=== PATIENT | male | born 1955 | race Caucasian/White ===

== ENCOUNTER 2018-03-23 08:09 | Day surgery (SDC) | payer BC ==
[2018-03-22 11:01] VITALS: BMI 26.6
--- NOTE | 2018-03-23 07:41 | HP ---
SHORT STAY HISTORY AND PHYSICAL DATE OF ADMISSION: 03/23/2018 HISTORY OF PRESENT ILLNESS: This is a 62-year-old male with a history of colon polyp with polypectomy in the past. The last exam was done 5 years ago. He also has family history of colon ca ncer. The patient has history of acid reflux for many years. His symptom was controlled with antaci ds. Bowel movements are regular. He has been having abdominal pain off and on. The pain is over th e left lower quadrant area and also left upper quadrant. nausea and the pain worse after meals . He has no urinary symptoms. The patient comes in for a colonoscopy because of the colon polyp and also EGD because of abdominal pain and also chronic acid reflux. ALLERGIES: None. SOCIAL HISTORY: The patient is a former smoker. Does not drink alcohol. MEDICAL ILLNESSES: 1. Hyperlipidemia. 2. Chronic acid reflux. 3. Colon polyp. 4. Bilateral shoulder surgery. 5. Bilateral carpal tunnel syndrome release. 6. Back surgery x2. 7. Cervical spine surgery. 8. Right hand surgery. PHYSICAL EXAMINATION: VITAL SIGNS: Pulse is 70, blood pressure 130/80. HEENT: Conjunctivae clear. CARDIOVASCULAR SYSTEM: First and second heart sounds normal. LUNGS: Clear to auscultation. ABDOMEN: Soft to palpate. No organomegaly. Abdomen is tender over the left upper quadrant. No sanjana ound or guarding. ADMITTING DIAGNOSES: 1. Colon polyp. 2. Abdominal pain, chronic acid reflux. PLAN: EGD and colonoscopy.
--- NOTE | 2018-03-23 10:45 | OP ---
DATE OF PROCEDURE: 03/23/2018 OPERATIVE PROCEDURE: Colonoscopy. PREOPERATIVE DIAGNOSIS: The patient is a 62-year-old male with history of colon polyp and family history of colon cancer. The patient underwent colonoscopy. POSTOPERATIVE DIAGNOSIS: Normal colonoscopy. PROCEDURE IN DETAIL: The patient was placed on his left lateral position and was given sedation by A nesthesia Department. A rectal exam was done before the scope was advanced into the rectum. No lesi on felt on rectal exam. A Pentax video colonoscope was introduced into the rectum and advanced all t he way into the cecum. The patient did have some retained stool over the right colon, which was coat ing the mucosa. Water was irrigated and washed out. The mucosa appears normal throughout the colon. The appendiceal orifice, ileocecal valve, cecum, no pathology seen. The ascending colon, hepatic f lexure, no pathology seen. The transverse colon, splenic flexure, descending colon, and sigmoid colo n, no pathology seen. Retroflexion of the scope in the rectum showed no pathology.
[2018-03-23] MEDS ORDERED: Lidocaine 1% PF 5 ML VIAL ONE (13:43)
[2018-03-23] MEDS ORDERED: PROPOFOL 200 MG/20 ML VIAL ONE (13:43)
--- NOTE | 2018-03-23 23:12 | OP ---
DATE OF PROCEDURE: 03/23/2018 OPERATIVE PROCEDURE: Esophagogastroduodenoscopy with biopsy. PREOPERATIVE DIAGNOSIS: A 62-year-old male with abdominal pain, history of chronic acid re flux. He is undergoing esophagogastroduodenoscopy. POSTOPERATIVE DIAGNOSES: 1. Ulcerative esophagitis, Calypso grade 4. 2. Large hiatal hernia. 3. Duodenitis. PROCEDURE NOTE: The patient was placed on his left lateral position and was given sedation by Anesth esia Department. A Pentax video gastroscope under direct vision was passed down the oropharynx, past the GE junction into stomach and subsequently into the descending duodenum. The esophageal mucosa a ppears normal over the upper two-thirds. Over the distal esophagus, the patient found to have circum ferential ulcerations and esophagitis. The patient has a large hiatus hernia. Retroflexion failed t o show pathology in the fundus or cardia. The gastric body, gastric antrum, incisura angularis, no p athology seen. The duodenal bulb shows mucosal edema, erythema. The descending duodenum, no patholo gy seen. Biopsy obtained from the gastric antrum and gastric body. Also, biopsy obtained from the d istal esophagus. The stomach was decompressed and the scope removed. DISCHARGE PLANNING: This is a 62-year-old male with history of colon polyp and family hist ory of colon cancer. The patient has noted chronic acid reflux over the years and has been having ab dominal pain over the left upper quadrant. He underwent a colonoscopy, which was negative. The EGD showed severe ulcerative esophagitis, Calypso grade 4. He also had a hiatus hernia. DISCHARGE RECOMMENDATIONS: 1. Start the patient on omeprazole 40 once a day. 2. The patient was advised to call me if he develops abdominal pain or hematochezia. 3. Repeat colonoscopy in 3 years because of family history of colon cancer.
== END 2018-03-23 11:05 | disposition home or self-care (01) ==
LOC: SDC 08:09
PROVIDERS: ATTEND Internal Medicine Gastroenterology
PROC: 0DB68ZX Excision of Stomach, Via Natural or Artificial Opening Endoscopic, Diagnostic (ICD-10-PCS; principal; 2018-03-23)
PROC: 0DJD8ZZ Inspection of Lower Intestinal Tract, Via Natural or Artificial Opening Endoscopic (ICD-10-PCS; principal; 2018-03-23)
PROC: 0DB38ZX Excision of Lower Esophagus, Via Natural or Artificial Opening Endoscopic, Diagnostic (ICD-10-PCS; principal; 2018-03-23)
DX: Z12.11 Encounter for screening for malignant neoplasm of colon (principal); K29.50 Unspecified chronic gastritis without bleeding; K21.0 Gastro-esophageal reflux disease with esophagitis; K22.10 Ulcer of esophagus without bleeding; K29.80 Duodenitis without bleeding; K44.9 Diaphragmatic hernia without obstruction or gangrene; E78.5 Hyperlipidemia, unspecified; Z86.010 Personal history of colon polyps; Z80.0 Family history of malignant neoplasm of digestive organs; Z88.1 Allergy status to other antibiotic agents; Z88.6 Allergy status to analgesic agent
CPT/HCPCS: 88305; 88312; 88313; J2001; J2704

== ENCOUNTER 2018-08-11 16:56 | Outpatient (CLI) | payer BC ==
--- NOTE | 2018-08-11 18:23 | RAD ---
RIGHT HAND RADIOGRAPHS THREE VIEWS: 08/11/18 PROVIDED CLINICAL HISTORY: Postop. FINDINGS: No comparisons. There is deformity of the second metacarpal head with an irregular and collapsed appearance to the ar ticular surface. Material of increased density is seen in the expected second MCP joint space that ma y reflect bone graft. There is a suture anchor seen at the radial aspects of the second metacarpal ne ck. There is an otherwise unremarkable appearance to the regional osseous structures with exception o f first MCP arthrodesis/ankylosis changes. Joint spaces appear otherwise preserved. Alignment appears otherwise anatomic. IMPRESSION: Abnormal appearance to the second metacarpal head with associated postsurgical change. Correlation wi th prior examinations is necessary to complete evaluation. POS: PÉREZ
--- NOTE | 2018-08-11 18:27 | RAD ---
RIGHT ANKLE RADIOGRAPHS THREE VIEWS: 08/11/18 PROVIDED CLINICAL HISTORY: Right ankle pain. FINDINGS: There is no evidence for fracture or other acute osseous abnormality. Posterior and plantar calcaneal enthesophyte formation is seen. Alignment appears anatomic. Joint spaces appear preserved. Hypertrop hic changes are seen involving the medial caliculus and distal fibula that may predispose to impingem ent. IMPRESSION: No evidence for an acute osseous abnormality or significant arthropathy. POS: PÉREZ
== END 2018-08-11 16:57 | disposition home or self-care (01) ==
LOC: SCSRAD 16:56
PROVIDERS: ATTEND Family Medicine
DX: M79.641 Pain in right hand (principal); M25.571 Pain in right ankle and joints of right foot; R93.6 Abnormal findings on diagnostic imaging of limbs; Z98.890 Other specified postprocedural states

== ENCOUNTER 2019-10-17 06:48 | Outpatient (CLI) | payer BC ==
[2019-10-17 10:56] LABS: Anion Gap 11 mmol/L (10-20); BUN (Urea Nitrogen) 21 mg/dL (8.4-25.7); Calc. Creatinine Clearance 0 mL/min (70-130); Calcium 9.1 mg/dL (7.8-10.44); Carbon Dioxide 28 mmol/L (23-31); Chloride 103 mmol/L (98-107); Estimated GFR-MDRD 62; Glucose 79 mg/dL (80-115); Potassium 4.5 mmol/L (3.5-5.1); Sodium 137 mmol/L (136-145)
[2019-10-17 12:48] LABS: Band 5 % (5-11); Eosinophils 2 % (0-10); Hemoglobin 15.4 g/dL (14.0-18.0); Lymphocytes 25 % (21-51); MDiff Complete? YES; Mean Corpuscular HGB CONC 32.3 g/dL (32.0-36.0); Mean Corpuscular Hemoglobin 30.8 pg (27.0-31.0); Mean Corpuscular Volume 95.3 fL (78.0-98.0); Mean Platelet Volume 8.5 fL (7.4-10.4); Metamyelocyte 1 % (0-0); Monocytes 7 % (0-10); Neutrophil 35 % (42-75); Platelet Count 207 thou/uL (130-400); RBC Distribution Width 11.6 % (11.5-14.5); RBC Morphology Normal; Reactive Lymphocytes 25 % (0-10); Red Blood Cell (RBC) Count 5.01 mill/uL (4.70-6.10); White Blood Cell (WBC) Count 4.1 thou/uL (4.8-10.8)
--- NOTE | 2019-10-17 16:29 | EKG ---
Test Reason : Blood Pressure : / mmHG Vent. Rate : 059 BPM Atrial Rate : 059 BPM P-R Int : 180 ms QRS Dur : 074 ms QT Int : 402 ms P-R-T Axes : 049 -40 045 degrees QTc Int : 397 ms Sinus bradycardia Left axis deviation Low voltage QRS Abnormal ECG When compared with ECG of 07-NOV-2008 12:04, No significant change was found Confirmed by DR. Lay ALEXANDER ([id number]) on 10/17/2019 4:29:14 PM Referred By: Rylan NANCE Confirmed By:DR. Lay ALEXANDER
== END 2019-10-17 06:49 | disposition home or self-care (01) ==
LOC: LABBT 06:48
PROVIDERS: ATTEND Orthopaedic Surgery
DX: Z01.818 Encounter for other preprocedural examination (principal); S83.206A Unspecified tear of unspecified meniscus, current injury, right knee, initial encounter
CPT/HCPCS: 80048; 85025; 85060; 93005; 93010

== ENCOUNTER 2019-10-21 08:55 | Day surgery (SDC) | payer BC ==
[2019-10-17 09:41] VITALS: BMI 26.6
[2019-10-21] MEDS ORDERED: PROPOFOL 20 ML ONE (10:51)
[2019-10-21] MEDS ORDERED: Midazolam HCl 2 mg/2 ml Vial ONE (12:17)
[2019-10-21] MEDS ORDERED: Fentanyl 100 MCG/2 ML VIAL ONE ×2 (12:17→12:21)
[2019-10-21] MEDS ORDERED: Ketorolac Tromethamine 30 MG/ML VIAL ONE (12:29)
[2019-10-21] MEDS ORDERED: Lidocaine 1% PF 5 ML VIAL ONE (12:29)
[2019-10-21] MEDS ORDERED: Lidocaine 2% w/Epinephrine 1:200K 20 ML VIAL ONE (12:29)
[2019-10-21] MEDS ORDERED: PROPOFOL 200 MG/20 ML VIAL ONE (12:29)
[2019-10-21] MEDS ORDERED: Bupivacaine HCl 0.5%/Epinephrine 1:200,000/PF 30 ml Vial ONE (12:29)
--- NOTE | 2019-10-22 09:21 | OP ---
DATE OF PROCEDURE: 10/21/2019 PREOPERATIVE DIAGNOSIS: Right knee anterior horn lateral meniscus tear. POSTOPERATIVE DIAGNOSES: 1. Right knee anterior horn lateral meniscus tear. 2. The patient had fairly global grade 2 changes with small areas of grade 3 changes on the medial femoral condyle. The patient also was seen to have grade 3/4 changes in the entire trochlea of the femur and some chondral cracking on the lateral tibial plateau. PROCEDURES: Right knee arthroscopy, partial lateral meniscectomy. 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 ESTIMATED BLOOD LOSS: Minimal. COMPLICATIONS: None. ANESTHESIA: He did have a general anesthetic as well as local knee block. DISPOSITION: He went to recovery room in stable condition. INDICATIONS: This is an active 64-year-old male continues to have pain, catching, and swelling in the knee that has not responded to nonoperative treatment. At this time, he opted to have surgery. DESCRIPTION OF PROCEDURE: After all appropriate consent forms were explained and signed, Mr. Rodriges was taken back to the operative room and at this time was given general anesthetic. Once the level of anesthesia was appropriate, a tourniquet was placed on the right thigh. Leg was placed in arthroscopic leg chavez. The limb was then prepped and draped in standard surgical fashion. Limb was then exsanguinated. Tourniquet was taken up to 300 mmHg. Inferolateral portal was established. Scope was placed into the knee joint. A needle localization technique was then used to make a medial working portal. Diagnostic arthroscopy commenced in the notch. ACL and PCL probe found to be intact. The medial compartment was evaluated. The medial meniscus was intact. The medial tibial plateau was in good condition. 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 There were no significant loose chondral flaps noted. The lateral compartment showed an anterior horn in lateral meniscus tear, which was debrided with a shaver back to stable base. The remaining lateral compartment showed the femur to be in excellent condition. Popliteus was normal. The tibial plateau was noted to have some early fissuring, but nothing significant. Gutters were swept through, no loose bodies were noted. The patellofemoral joint showed the patella to have some early chondral changes with nothing significant that needed treatment and essentially the entire trochlea had grade 3 and 4 cartilage loss. Again, there were no loose chondral flaps. At this time, we then removed the scope, drained the knee and closed these portal with simple nylon stitch. Bulky sterile dressing was applied. Tourniquet was let down. Toes pinked up nicely. The patient was awakened to recovery room in stable condition. All counts were correct at the end of the case and he did receive preoperative IV antibiotics. Job ID: [id number]
== END 2019-10-21 15:50 | disposition home or self-care (01) ==
LOC: SDC 08:55
PROVIDERS: ATTEND Orthopaedic Surgery
PROC: 0SBC4ZZ Excision of Right Knee Joint, Percutaneous Endoscopic Approach (ICD-10-PCS; principal; 2019-10-21)
DX: S83.281A Other tear of lateral meniscus, current injury, right knee, initial encounter (principal); M94.261 Chondromalacia, right knee; K21.9 Gastro-esophageal reflux disease without esophagitis; Z79.899 Other long term (current) drug therapy; Z88.0 Allergy status to penicillin; Z88.1 Allergy status to other antibiotic agents; Z88.8 Allergy status to other drugs, medicaments and biological substances; Z98.890 Other specified postprocedural states
CPT/HCPCS: J0670; J0690; J1885; J2001; J2250; J2704; J3010

== ENCOUNTER 2022-04-03 14:14 | Outpatient (CLI) | payer MEDICARE | END 2022-04-03 14:15 | disposition home or self-care (01) | LOC: LABBT 14:14 | PROVIDERS: ATTEND Internal Medicine Gastroenterology | DX: Z12.11 Encounter for screening for malignant neoplasm of colon (principal); K21.9 Gastro-esophageal reflux disease without esophagitis; R10.9 Unspecified abdominal pain; Z20.822 Contact with and (suspected) exposure to COVID-19 | CPT/HCPCS: 87811 ==

== ENCOUNTER 2022-04-08 06:15 | Day surgery (SDC) | payer MEDICARE ==
[2022-04-04 09:53] VITALS: BMI 26.6
[2022-04-08] MEDS ORDERED: Lidocaine 1% PF 5 ML VIAL ONE (08:55)
[2022-04-08] MEDS ORDERED: PROPOFOL 200 MG/20 ML VIAL ONE (08:55)
== END 2022-04-08 10:20 | disposition home or self-care (01) ==
LOC: SDC 06:15
PROVIDERS: ATTEND Internal Medicine Gastroenterology
PROC: 0DBM8ZX Excision of Descending Colon, Via Natural or Artificial Opening Endoscopic, Diagnostic (ICD-10-PCS; principal; 2022-04-08)
PROC: 0DB38ZX Excision of Lower Esophagus, Via Natural or Artificial Opening Endoscopic, Diagnostic (ICD-10-PCS; 2022-04-08)
PROC: 0DB68ZX Excision of Stomach, Via Natural or Artificial Opening Endoscopic, Diagnostic (ICD-10-PCS; 2022-04-08)
DX: Z12.11 Encounter for screening for malignant neoplasm of colon (principal); D12.4 Benign neoplasm of descending colon; K21.00 Gastro-esophageal reflux disease with esophagitis, without bleeding; K57.30 Diverticulosis of large intestine without perforation or abscess without bleeding; K64.9 Unspecified hemorrhoids; K52.0 Gastroenteritis and colitis due to radiation; K44.9 Diaphragmatic hernia without obstruction or gangrene; I10 Essential (primary) hypertension; E78.5 Hyperlipidemia, unspecified; I27.20 Pulmonary hypertension, unspecified; Z85.46 Personal history of malignant neoplasm of prostate; Z87.891 Personal history of nicotine dependence; Z80.0 Family history of malignant neoplasm of digestive organs; Z79.899 Other long term (current) drug therapy; Z88.0 Allergy status to penicillin; Z88.1 Allergy status to other antibiotic agents; Z88.8 Allergy status to other drugs, medicaments and biological substances
CPT/HCPCS: 88305; 88312; 88313; 88341; 88342; J2704

== ENCOUNTER 2023-10-08 06:22 | Day surgery (SDC) | payer MEDICARE ==
[2023-10-06 11:27] VITALS: BMI 25.4
[~2023-10-08 06:22] MED LIST: EPINEPHrine 0.3 MG in Ophthalmic Irrigation Solution 500 ML IRR SCH
[2023-10-08] MEDS ORDERED: Cyclopentolate 1% Opth Drop 2 ML BOT ONE (06:33)
[2023-10-08] MEDS ORDERED: PHENYLephrine 2.5% Ophth Soln 15 ml Bottle ONE (06:33)
[2023-10-08] MEDS ORDERED: fentaNYL PF 100 MCG/2 ML SYRINGE ONE (06:48)
[2023-10-08] MEDS ORDERED: PROPOFOL 20 ML ONE (06:48)
[2023-10-08] MEDS ORDERED: Lidocaine 4% PF 5 ML AMP ONE (07:15)
[2023-10-08] MEDS ORDERED: Lidocaine 1% PF 5 ML VIAL ONE (07:15)
[2023-10-08] MEDS ORDERED: Bupivacaine 0.75% 10 ML VIAL ONE (07:15)
[2023-10-08] MEDS ORDERED: CEFAZOLIN 1 GM VIAL ONE (07:15)
[2023-10-08] MEDS ORDERED: Dexamethasone 4 mg/ml Vial ONE ×2 (07:15→07:24)
[2023-10-08] MEDS ORDERED: Maxitrol 0.1% Opth Oint 3.5 GM TUBE ONE (07:15)
[2023-10-08] MEDS ORDERED: Lidocaine 1% MPF 2 ML VIAL ONE (08:30)
== END 2023-10-08 08:10 | disposition home or self-care (01) ==
LOC: SDC 06:22
PROVIDERS: ATTEND Ophthalmology Retina Specialist
PROC: 08T43ZZ Resection of Right Vitreous, Percutaneous Approach (ICD-10-PCS; principal; 2023-10-08)
PROC: 08NE3ZZ Release Right Retina, Percutaneous Approach (ICD-10-PCS; 2023-10-08)
DX: H43.311 Vitreous membranes and strands, right eye (principal); Z88.0 Allergy status to penicillin; Z88.1 Allergy status to other antibiotic agents; Z88.5 Allergy status to narcotic agent
CPT/HCPCS: J0171; J0690; J1100; J2704; J3490

== ENCOUNTER 2024-06-23 08:50 | Day surgery (SDC) | payer MEDICARE ==
[2024-06-22 14:52] VITALS: BMI 25.8
[2024-06-23] MEDS ORDERED: PROPOFOL 20 ML ONE (09:50)
[2024-06-23] MEDS ORDERED: Midazolam HCl 2 mg/2 ml Vial ONE (09:51)
[2024-06-23] MEDS ORDERED: fentaNYL 50 mcg/mL 1 mL Vial ONE ×2 (09:51→10:56)
[2024-06-23] MEDS ORDERED: Lidocaine 2% PF 5 ML VIAL ONE (09:53)
[2024-06-23] MEDS ORDERED: PHENYLephrine 2.5% Ophth Soln 15 ml Bottle ONE (10:00)
[2024-06-23] MEDS ORDERED: Cyclopentolate 1% Opth Drop 2 ML BOT ONE (10:00)
[2024-06-23] MEDS ORDERED: Ondansetron PF 4 MG/2 ML Vial ONE (11:07)
[2024-06-23] MEDS ORDERED: CEFAZOLIN 1 GM VIAL ONE (11:15)
[2024-06-23] MEDS ORDERED: Lidocaine 4% PF 5 ML AMP ONE (11:15)
[2024-06-23] MEDS ORDERED: Bupivacaine 0.75% 10 ML VIAL ONE (11:15)
[2024-06-23] MEDS ORDERED: Triamcinolone 40 MG/ML VIAL ONE (11:15)
[2024-06-23] MEDS ORDERED: Lidocaine 1% PF 5 ML VIAL ONE (11:15)
[2024-06-23] MEDS ORDERED: Maxitrol 0.1% Opth Oint 3.5 GM TUBE ONE (11:15)
== END 2024-06-23 12:28 | disposition home or self-care (01) ==
LOC: SDC 08:50
PROVIDERS: ATTEND Ophthalmology Retina Specialist
PROC: 08N53ZZ Release Left Vitreous, Percutaneous Approach (ICD-10-PCS; principal; 2024-06-23)
DX: H33.012 Retinal detachment with single break, left eye (principal); Z88.8 Allergy status to other drugs, medicaments and biological substances; Z88.1 Allergy status to other antibiotic agents; Z79.899 Other long term (current) drug therapy
CPT/HCPCS: 67025; 67108; J0171; J0690; J2405; J2704; J3010; J3301; J3490; J2250

== ENCOUNTER 2025-07-13 08:28 | Outpatient (CLI) | payer MEDICARE, OTHER | END 2025-07-13 08:29 | disposition home or self-care (01) | LOC: SCSMRI 08:28 | PROVIDERS: ATTEND Orthopaedic Surgery | DX: M75.121 Complete rotator cuff tear or rupture of right shoulder, not specified as traumatic (principal); M19.011 Primary osteoarthritis, right shoulder; S46.111A Strain of muscle, fascia and tendon of long head of biceps, right arm, initial encounter ==